=== PATIENT | male | born 1960 | race African-American/Black ===

== ENCOUNTER 2021-05-18 22:07 | Inpatient (IN) | payer MEDICAID ==
[~2021-05-18] VITALS: Ht 175.3 cm; Wt 63.0 kg
[~2021-05-18 22:07] MED LIST: QUET25TA PO
--- NOTE | 2021-05-18 22:11 | NUR ---
Pt bibself c/o RLQ abd pain after eating dinner. Pt aaox4 breathing evenly and unlabored. Pt denies n/v. pt attached to monitor and pox.Md at bedside. Pt given blankets and call light within reach
[2021-05-18] MEDS ORDERED: MORPHINE SULFATE INJ 2 MG/ML DISP.SYRIN IV ONE (22:30)
[2021-05-18] MEDS ORDERED: IV NS 0.9% 1,000 ML BAG IV ONE (22:30)
[2021-05-18] MEDS ORDERED: ONDANSETRON HCL/PF 4 MG/2 ML VIAL IVP ONE (22:30)
[2021-05-18] MEDS ORDERED: MORPHINE SULFATE INJ 4 MG/ML DISP.SYRIN ONE (22:39)
[2021-05-18] MEDS ORDERED: ONDANSETRON HCL/PF 4 MG/2 ML VIAL ONE (22:39)
[2021-05-18 22:43] LABS: BASOPHILS # (AUTO) 0.1 /CMM (0.0-0.2); EOSINOPHILS % (AUTO) 3.3 % (0.0-6.0); HEMATOCRIT 38 % (39-51); HEMOGLOBIN 12.4 g/dL (13.5-17.5); MEAN CORPUSCULAR HGB CONC 33 g/dl (31.0-36.0); MEAN CORPUSCULAR VOLUME 91 fL (80-96); MONOCYTES # (AUTO) 0.4 /CMM (0.1-1.30); MONOCYTES % (AUTO) 6.7 % (2.0-12.0); NEUTROPHILS # (AUTO) 3.8 /CMM (1.8-8.9); PLATELET COUNT (AUTO) 201 /CMM (150-450); RED BLOOD CELL COUNT(AUTO) 4.18 MIL/uL (4.5-6.0); WHITE BLOOD COUNT (AUTO) 5.4 K/uL (4.3-11.0)
[2021-05-18 22:54] LABS: CALCIUM, SERUM 9.8 mg/dL (8.5-10.1); CREATININE 1.5 mg/dL (0.6-1.3); POTASSIUM 4.7 mmol/L (3.5-5.1)
[2021-05-18] MEDS ORDERED: IV NS 0.9% 250 ML IV ONE (23:01)
[2021-05-18] MEDS ORDERED: CT SWABBABLE VALVE TRANS SET 1 EA INFUS.SET MC ONE (23:01)
[2021-05-18] MEDS ORDERED: IOHEXOL-300 100 ML VIAL IV ONE (23:01)
--- NOTE | 2021-05-18 23:28 | NUR ---
pt returned from radiology
--- NOTE | 2021-05-19 00:11 | NUR ---
covid swab sent to lab
--- NOTE | 2021-05-19 00:20 | NUR ---
urine sent to lab
--- NOTE | 2021-05-19 01:00 | NUR ---
Estela reyes in ED - 05/19/21 at 0116 by ARSH CALLED [facility], SPOKE AND ILENE AND WAS ON HOLD FOR >30MIN, PER ILENE THEY'RE NOT ABLE TO PROVIDE THE TRANSPORTATION
--- NOTE | 2021-05-19 01:06 | NUR ---
PAGED PANEL PER DR'S ORDER
--- NOTE | 2021-05-19 01:25 | NUR ---
CALLED [facility] FOR [facility] BED
--- NOTE | 2021-05-19 01:36 | NUR ---
DR MUÑOZ ON THE PHONE WITH DR FRANCO
--- NOTE | 2021-05-19 01:52 | NUR ---
[facility] BED 112-1
[2021-05-19] MEDS ORDERED: IV NS 0.9% 1,000 ML IV ONE (02:00)
[2021-05-19] MEDS ORDERED: ZOLPIDEM TARTRATE 5 MG TABLET PO PRN (02:00)
[2021-05-19] MEDS ORDERED: ONDANSETRON HCL/PF 4 MG/2 ML VIAL IVP PRN (02:00)
[2021-05-19] MEDS ORDERED: ACETAMINOPHEN 325 MG TABLET PO PRN (02:00)
[2021-05-19] MEDS ORDERED: HYDROCODONE/APAP 5/325MG TABLET PO PRN (02:00)
[2021-05-19] MEDS ORDERED: Z GUARD REMEDY 2 OZ OINT TP PRN (02:00)
[2021-05-19] MEDS ORDERED: MAG HYDROX/AL HYDROX/SIMETH 30 ML UDC PO PRN (02:00)
[2021-05-19] MEDS ORDERED: MAGNESIUM HYDROXIDE 30 ML UDC PO PRN (02:00)
--- NOTE | 2021-05-19 02:15 | NUR ---
gave report to homero Avilez for liu
--- NOTE | 2021-05-19 02:21 | NUR ---
survey analyst Notes Patient arrived via gurney to the unit at approximately 0221. Patient was able to walk from the gurney to his bed. Patient is alert and oriented x4. Patient's on room air with no respiratory distress noted. Patient has an IV access on his right antecubital gauge #20, which is intact and patent. Patient was oriented to the staff and his room. Patient has no signs and symptoms of distress noted. Safety measures in place: Bed locked, side rails up x2, and call light within easy reach of the patient. Will continue to monitor the patient.
[2021-05-19 05:17] VITALS: BP 119/55
--- NOTE | 2021-05-19 06:45 | NUR ---
RN Closing Notes Patient was last seen sleeping in bed. Patient is alert and oriented x4. Patient's on room air with no respiratory distress noted. Patient has an IV access on his right antecubital gauge #20, which is running NS at 100 mL/hr. Patient has no signs and symptoms of distress noted. Safety measures in place: Bed locked, side rails up x2, and call light within easy reach of the patient. Will endorse care to the day shift nurse.
[2021-05-19 07:22] LABS: BASOPHILS # (AUTO) 0.1 /CMM (0.0-0.2); BASOPHILS % (AUTO) 2.6 % (0.0-2.0); EOSINOPHILS % (AUTO) 2.3 % (0.0-6.0); HEMATOCRIT 33 % (39-51); LYMPHOCYTES # (AUTO) 1.1 /CMM (0.8-4.8); LYMPHOCYTES % (AUTO) 21.6 % (20.0-44.0); MEAN CORPUSCULAR HGB CONC 33 g/dl (31.0-36.0); MEAN CORPUSCULAR VOLUME 91 fL (80-96); MONOCYTES # (AUTO) 0.3 /CMM (0.1-1.30); MONOCYTES % (AUTO) 6.5 % (2.0-12.0); NEUTROPHILS # (AUTO) 3.6 /CMM (1.8-8.9); PLATELET COUNT (AUTO) 191 /CMM (150-450); RED BLOOD CELL COUNT(AUTO) 3.65 MIL/uL (4.5-6.0); WHITE BLOOD COUNT (AUTO) 5.3 K/uL (4.3-11.0)
--- NOTE | 2021-05-19 07:45 | NUR ---
RN NOTE PATIENT IS IN BED WITH HOB AT SEMI FOWLERS POSITION. PATIENT IS AOX4. PATIENT IS ON ROOM AIR WITH NO SIGNS OF LABORED BREATHING. RAC #20 IS PATENT AND INTACT. BED IS LOCKED IN THE LOWEST POSITION, 3 GUARD RAILS RAISED, CALL HARRISON WITHIN REACH, AND ALL HOSPITAL SAFETY PRECAUTIONS ARE BEING FOLLOWED. WILL CONTINUE TO MONITOR THROUGHOUT SHIFT.
[2021-05-19 07:53] LABS: CALCIUM, SERUM 8.3 mg/dL (8.5-10.1); CREATININE 1.2 mg/dL (0.6-1.3); PHOSPHORUS 3.5 mg/dL (2.5-4.9); POTASSIUM 4.1 mmol/L (3.5-5.1)
[2021-05-19] MEDS: QUETIAPINE FUMARATE 25 MG TABLET PO SCH (09:00)
[2021-05-19] MEDS ORDERED: DIATR MEGLU/DIATRIZOATE SODIUM 120 ML BOTTLE (GASTROGRAPHIN) ONE (09:44)
--- NOTE | 2021-05-19 17:00 | NUR ---
RN NOTE PATIENT'S IV HAS BEEN DISLODGED. RN UMAIR ABLE TO INSERT NEW IV ACCESS.
[2021-05-19] MEDS: IV D5/ 0.9% NACL 1,000 ML IV PRN (18:32)
--- NOTE | 2021-05-19 19:10 | NUR ---
RN NOTE PATIENT IS IN BED WITH HOB AT SEMI FOWLERS POSITION. PATIENT IS AOX4. PATIENT IS ON ROOM AIR WITH NO SIGNS OF LABORED BREATHING. LAC #20 IS PATENT AND INTACT. BED IS LOCKED IN THE LOWEST POSITION, 3 GUARD RAILS RAISED, CALL HARRISON WITHIN REACH, AND ALL HOSPITAL SAFETY PRECAUTIONS ARE BEING FOLLOWED. ALL DUE MEDS GIVEN AND PATIENT REMAINED STABLE THROUGHOUT SHIFT. WILL ENDORSE TO PRESCHOOL ADVISER RN.
--- NOTE | 2021-05-19 19:56 | NUR ---
RN NOTE PATIENT IN BED, AWAKE. ALERT AND ORIENTED X4. ON ROOM AIR, NO SIGNS OF RESPIRATORY DISTRESS. DENIES ANY PAIN AT THIS TIME. WITH LEFT AC #20 PATENT AND INTACT, RUNNING D5NS @ 75ML/HR. NO SIGNS OF ANY INFILTRATION. BED LOCKED AND IN LOWEST POSITION. CALL LIGHT WITHIN REACH. ALL NEEDS ANTICIPATED.
[2021-05-19 21:00] VITALS: BP 133/69
[2021-05-20 05:00] VITALS: BP 134/77
[2021-05-20] MEDS: IV D5/ 0.9% NACL 1,000 ML IV PRN (06:28)
--- NOTE | 2021-05-20 06:50 | NUR ---
RN NOTE PATIENT ALERT AND ORIENTED X4. ON ROOM AIR, NO SIGNS OF RESPIRATORY DISTRESS. DENIES ANY PAIN AT THIS TIME. WITH LEFT AC #20 PATENT AND INTACT, RUNNING D5NS @ 75ML/HR. NO SIGNS OF ANY INFILTRATION. NO SIGNIFICANT CHANGES DURING THIS SHIFT. ALL NEEDS ATTENDED PROMPTLY. BED LOCKED AND IN LOWEST POSITION. CALL LIGHT WITHIN REACH. WILL ENDORSE TO AM SHIFT.
[2021-05-20 07:04] LABS: BASOPHILS % (AUTO) 0.4 % (0.0-2.0); EOSINOPHILS % (AUTO) 3.4 % (0.0-6.0); HEMATOCRIT 36 % (39-51); HEMOGLOBIN 11.6 g/dL (13.5-17.5); LYMPHOCYTES % (AUTO) 28.3 % (20.0-44.0); MEAN CORPUSCULAR HGB CONC 33 g/dl (31.0-36.0); MEAN CORPUSCULAR VOLUME 92 fL (80-96); MONOCYTES # (AUTO) 0.3 /CMM (0.1-1.30); MONOCYTES % (AUTO) 9.3 % (2.0-12.0); NEUTROPHILS # (AUTO) 2.1 /CMM (1.8-8.9); NEUTROPHILS % (AUTO) 58.6 % (43.0-81.0); PLATELET COUNT (AUTO) 191 /CMM (150-450); RED BLOOD CELL COUNT(AUTO) 3.87 MIL/uL (4.5-6.0); WHITE BLOOD COUNT (AUTO) 3.6 K/uL (4.3-11.0)
[2021-05-20 07:30] LABS: CALCIUM, SERUM 8.4 mg/dL (8.5-10.1); MAGNESIUM 1.9 mg/dL (1.8-2.4); PHOSPHORUS 2.4 mg/dL (2.5-4.9); POTASSIUM 3.7 mmol/L (3.5-5.1)
--- NOTE | 2021-05-20 07:30 | NUR ---
RN NOTE PATIENT IS IN BED WITH HOB AT SEMI FOWLERS POSITION. PATIENT IS ON RA WITH NO SIGNS OF LABORED BREATHING. PATIENT IS AOX4. LAC #20 IS PATENT AND INTACT. BED IS LOCKED IN THE LOWEST POSITION, 3 GUARD RAILS RAISED, CALL HARRISON WITHIN REACH, AND ALL HOSPITAL SAFETY PRECAUTIONS ARE BEING FOLLOWED. WILL CONTINUE TO MONITOR THROUGHOUT SHIFT.
[2021-05-20] MEDS: QUETIAPINE FUMARATE 25 MG TABLET PO SCH (09:00)
[2021-05-20] MEDS ORDERED: K PHOS NEUTRAL 250 MG TABLET PO ONE (11:00)
--- NOTE | 2021-05-20 11:35 | NUR ---
RN NOTE PATIENT DISCHARGED IN STABLE CONDITION.
== END 2021-05-20 11:50 | disposition home or self-care (01) | DRG 247 ==
LOC: ER 22:10 → MEDSG1 05-19 01:55
PROVIDERS: ADMIT Registered Nurse; ATTEND Registered Nurse
DX: K56.7 Ileus, unspecified (principal); N17.0 Acute kidney failure with tubular necrosis; M41.9 Scoliosis, unspecified; F19.10 Other psychoactive substance abuse, uncomplicated; I10 Essential (primary) hypertension; J45.909 Unspecified asthma, uncomplicated; Z20.822 Contact with and (suspected) exposure to COVID-19; Z88.0 Allergy status to penicillin; Z79.899 Other long term (current) drug therapy; K66.0 Peritoneal adhesions (postprocedural) (postinfection); F32.9 Major depressive disorder, single episode, unspecified; Z72.0 Tobacco use; M51.36 Other intervertebral disc degeneration, lumbar region
CPT/HCPCS: 36415; 71045-TC; 74250-TC; 80048-TC; 80061-TC; 83735-TC; 84100-TC; 85025-TC; 87081-TC; 93307-TC; C9803; G0378; J2270; J2405; J7030; J7042; J7050; Q9963; Q9967

== ENCOUNTER 2022-02-20 15:37 | Emergency (ER) | payer MEDICAID ==
[~2022-02-20] VITALS: Ht 175.3 cm; Wt 71.7 kg
[2022-02-20 15:50] VITALS: BP 130/94
--- NOTE | 2022-02-20 15:50 | NUR ---
VISIT FOR SUTURE REMOVAL. R HAND LACERATION REPAIR 7 DAYS AGO.
--- NOTE | 2022-02-20 16:05 | NUR ---
SUTURE REMOVAL DONE. PT TOLERATED PROCEDURE WELL. D/C IN STABLE CONDITION.
== END 2022-02-20 16:05 | disposition home or self-care (01) ==
LOC: ER 15:39
DX: S61.411D Laceration without foreign body of right hand, subsequent encounter (principal); Z48.02 Encounter for removal of sutures; F17.200 Nicotine dependence, unspecified, uncomplicated; Z87.39 Personal history of other diseases of the musculoskeletal system and connective tissue; Z88.0 Allergy status to penicillin; Z79.899 Other long term (current) drug therapy; X58.XXXD Exposure to other specified factors, subsequent encounter